=== PATIENT | female | born 1940 | race Caucasian/White ===

== ENCOUNTER → 2016-05-15 | Outpatient (CLI) | payer MEDICARE ==
--- NOTE | 2016-05-16 09:05 | US ---
EXAM DESCRIPTION: US LOWER EXTREMITY VEINS LIMITED/UNILATERAL/FOLLOW UP CLINICAL HISTORY: 75 y/o F, SOFT TISSUE DISORDER COMPARISON: None TECHNIQUE: Grayscale, color Doppler and spectral Doppler imaging of the venous structures within left lower extremity was performed. FINDINGS: Normal compressibility and color Doppler flow of the venous structures within the left lower extremity. IMPRESSION: Negative for left lower extremity DVT. Electronically signed by: Earl Soler MD 05/16/2016 09:04
== END | disposition home or self-care (01) ==
LOC: RAD 14:44
PROVIDERS: ATTEND Nurse Practitioner Family
DX: R60.0 Localized edema (principal); M79.89 Other specified soft tissue disorders

== ENCOUNTER → 2016-05-15 | Outpatient (CLI) | payer MEDICARE | END | disposition home or self-care (01) | LOC: GMA 14:30 | PROVIDERS: ATTEND Nurse Practitioner Family | DX: M79.89 Other specified soft tissue disorders (principal) ==

== ENCOUNTER → 2016-06-20 | Outpatient (CLI) | payer MEDICARE ==
--- NOTE | 2016-06-21 07:42 | MRI ---
Study: MRI of the Left Knee. Indication: Left knee pain and lower leg pain laterally. Technique: Multiplanar, multi sequence MRI of the left knee was obtained without intravenous contrast. Comparison: None. Findings: Mucoid degeneration ACL without tear. PCL, MCL and lateral collateral ligament complex intact. The posterior attachment medial meniscus appears attenuated and a component of radial tearing is suspected as well as questionable 4 mm internal ossification. 3 mm of extrusion of the body with degenerative signal throughout the posterior horn and body. Degenerative signal and attenuation anterior root attachment lateral meniscus. Grade 3 and mild grade 4 chondral loss central weightbearing portions medial compartment with grade 2/3 changes lateral compartment. Patellofemoral extensor mechanism intact. Irregular grade 4 chondral loss and subchondral marrow change of the patellar apex. Moderate sized knee effusion. No acute fracture or osseous contusion. 6 mm cyst at the anterior margin of the anterior root insertion medial meniscus. Impression: Mucoid degeneration ACL without acute tear. Hypoattenuation posterior attachment medial meniscus with high-grade radial tearing and an internal ossicle suspected. Degeneration and attenuation anterior root attachment lateral meniscus. 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 Moderate-sized knee effusion. Electronically signed by: Kirby Morales MD 06/21/2016 7:40 AM CDT
== END | disposition home or self-care (01) ==
LOC: MRI 12:51
PROVIDERS: ATTEND Nurse Practitioner Family
DX: S83.242A Other tear of medial meniscus, current injury, left knee, initial encounter (principal); M25.562 Pain in left knee

== ENCOUNTER 2016-07-18 20:50 | Emergency (ER) | payer MEDICARE ==
[2016-07-18] MEDS ORDERED: NITROGLYCERIN 0.4 MG 25 EA TAB SL ONE ×2 (21:04→21:05)
[2016-07-18] MEDS ORDERED: ASPIRIN TABLET 325 MG TAB ONE (21:05)
[2016-07-18] MEDS ORDERED: ASPIRIN TABLET 325 MG TAB PO ONE (21:05)
--- NOTE | 2016-07-18 22:01 | ED.PDOC ---
History of Present Illness - General Chief Complaint: Cardiovascular Problem Stated Complaint: elevated cardiac enzymes Time Seen by Provider: 07/18/16 21:28 Source: patient, RN notes reviewed, Vital Signs reviewed, RN/MD, old records Exam Limitations: no limitations - History of Present Illness Initial Comments: Patient is a 76 y/o female who has had shortness of breath for 3 weeks. She has had occasional chest tightness. She want to see her PCP today and he performed an EKG which showed t-wave inversion in II, III and aVL. He received her labs this evening and they showed a Troponin I of 0.08 and a BNP of 400. Patient was called and told to come into the ED. Patient now has mild chest pressure but continued shortness of breath. When she does have chest pain, it radiates to her back. She denies any cough. She has a history of high blood pressure. Timing/Duration: getting worse, other - 2-3 weeks Severity: moderate, severe Location: other - left chest Activities at Onset: none Prior Chest Pain/Cardiac Workup: no prior cardiac workup, other - Patient has an appointment to see Dr. Vickers but has not seen him yet. Improving Factors: other - sitting up Worsening Factors: other - laying down, activity Nitro Today/Relief: 0.4 mg x 1, provided by ED, complete relief Aspirin Treatment Today: 325 mg x 1, provided by ED Associated Symptoms: chest pain, malaise, shortness of breath, weakness Allergies/Adverse Reactions: Allergies NO KNOWN ALLERGY Allergy (Verified 07/12/13 13:17) Review of Systems - Review of Systems Constitutional: States: weakness EENTM: States: no symptoms reported Respiratory: States: orthopnea, short of breath Cardiology: States: chest pain Gastrointestinal/Abdominal: States: no symptoms reported Genitourinary: States: no symptoms reported Musculoskeletal: States: joint pain, joint swelling Skin: States: no symptoms reported Neurological: States: no symptoms reported Endocrine: States: no symptoms reported Hematologic/Lymphatic: States: no symptoms reported All other Systems: Reviewed and Negative Physical Exam - Physical Exam General Appearance: Alert, Anxious Eyes, Ears, Nose, Throat Exam: normal ENT inspection Neck: non-tender, full range of motion, supple Progress - Results/Orders Results/Orders: Labs reviewed from clinic: Troponin I 0.08, BNP 400. EKG from clinic reviewed: T wave inversion in II, III and aVF 07/18/16 07/18/16 20:55 21:10 Temperature 98.0 F Pulse Rate [ 78 77 monitor] Respiratory 16 Rate Blood Pressure 183/126 162/72 [Left Arm] O2 Sat by Pulse 95 Oximetry Laboratory Results Creatine Kinase 56 IU/L (26-140) 07/18/16 21:35 CK-MB (CK-2) 2.4 ng/mL (0.0-4.4) 07/18/16 21:35 CK-MB (CK-2) % Not Reportable 07/18/16 21:35 Troponin I 0.09 ng/mL (0.01-0.05) H* 07/18/16 21:35 - EKG/XRAY/CT EKG: Sinus - 77 bpm, nonspecific ST T wave Chg - T-wave inversion in leads III and aVF, Changed from - 07/18/2016 - T wave inversion in lead II as well Comments: NML axis, normal intervals. Sinus rhythm Departure - Departure Clinical Impression: Elevated troponin Congestive heart failure Qualifiers: Congestive heart failure type: unspecified congestive heart failure type Congestive heart failure chronicity: acute Qualifier Code: (I50.9) Heart failure , unspecified Chest pain Qualifiers: Chest pain type: unspecified Qualifier Code: (R07.9) Chest pain, unspecified Time of Disposition: 22:19 Disposition: Transfer to Hospital Transfer to Outside Facility - Transfer Information Accepting Provider:: Dr. Harp Accepting Facility: [facility] Reason for Transfer: required specialist not available - Initial contact at [phone]. Return call at [phone].
[2016-07-18 22:16] VITALS: TEMP 98
[2016-07-18 22:57] VITALS: BP 142/68; O2SAT 94
--- NOTE | 2016-07-18 23:00 | RAD ---
Procedure: XR CHEST 1 VIEW Exam Date: 07/18/2016 Ordering Provider: Caroline Soto Clinical Indication: elevated troponin Comparison: None Findings: Cardiac size is magnified by technique. Pulmonary vasculature is normal. Mediastinal contour is normal. Aortic contour is normal. There is no focal lung consolidation. No pleural effusion. There is no pneumothorax. There is no acute bony or soft tissue abnormality. Postsurgical changes in the right shoulder. Impression: 1. No acute abnormalities in the chest. Electronically signed by: Inocencio Jameson MD 07/18/2016 10:59 PM CDT
== END 2016-07-18 22:57 | disposition short-term general hospital (02) ==
LOC: ER 20:50
DX: I50.9 Heart failure, unspecified (principal); R79.89 Other specified abnormal findings of blood chemistry; R07.9 Chest pain, unspecified

== ENCOUNTER 2017-05-11 09:45 | Observation (INO) | payer MEDICARE ==
[2017-05-11] MEDS ORDERED: ALUM & MAG HYDROX-SIMETHICONE 30 ML, LIDOCAINE VISCOUS 2% 15 ML PO ONE ×2 (10:12)
[2017-05-11] MEDS ORDERED: ONDANSETRON ODT 8 MG TAB SL ONE (10:12)
[2017-05-11] MEDS ORDERED: KETOROLAC TROMETHAMINE INJ 30 MG/ML VIAL IV ONE (10:58)
[2017-05-11] MEDS ORDERED: SODIUM CHLORIDE 0.9% 1000ML 1,000 ML IVS ONE (10:59)
[2017-05-11] MEDS ORDERED: LIDOCAINE HCL 2% (MOUTH-THROAT) 15 ML UD ONE (11:02)
[2017-05-11] MEDS ORDERED: ALUM & MAG HYDROX-SIMETHICONE 30 ML UD ONE (11:02)
--- NOTE | 2017-05-11 11:06 | RAD ---
PROCEDURE: Abdomen Series Clinical History: abd pain, right shoulder pain, n/v Indication: Same as above Comparison: 07/18/2016 Technique: Two views of the abdomen and pelvis and single view of the chest were done. Findings: There is no gross evidence of free air in the abdomen or the pelvis . The small and large bowel gas pattern does not show any evidence of obstruction, ileus or bowel wall thickening. There is no visualization of radiopaque calculi in the outline of the urinary tract. There is no significant constipation. Small amount of retained fecal material is seen in the rectosigmoid colon There are no discrete airspace infiltrates, pneumothoraces or pleural effusions. The cardiac mediastinal silhouette is unremarkable Degenerative changes are seen in the thoracic and the lumbar spine. Prior surgery is seen in the right shoulder joint. Multiple phleboliths are seen in the pelvis. Impression: There are no acute or significant findings in the chest, abdomen and the pelvis Location of Interpretation: [id number] Electronically signed by: Robbie Manrique MD 05/11/2017 11:06 AM [facility] Workstation: [id number]
--- NOTE | 2017-05-11 12:00 | CT ---
EXAM: CT ABDOMEN PELVIS WITHOUT CONTRAST CLINICAL INDICATION: upper abd pain 2 weeks with elev lft, MAIN TECHNIQUE: Multiple axial CT images of the abdomen and pelvis were obtained without IV or oral contrast. Coronal and sagittal reformatted images were included. This exam was performed according to our departmental dose-optimization program which includes use of Automated Exposure Control, adjustment of the mA and/or kV according to patient size and/or use of iterative reconstruction technique. COMPARISON: None. FINDINGS: Evaluation of the soft tissue structures and vasculature is limited given the lack of IV contrast. Chest: The visualized lung bases are clear, without nodule, lung masses or airspace consolidation. There are no pleural or pericardial effusions. Heart size appears within normal limits. Abdomen/Pelvis: The liver has normal size and contours. No focal intrahepatic mass lesion is identified. There is no extrahepatic biliary ductal dilatation. Gallbladder is present. The spleen, pancreas and adrenal glands have a normal noncontrast enhanced CT appearance. The kidneys have a normal noncontrast CT appearance, and there is no obstructive uropathy. There are sub-5 mm bilateral nonobstructing renal calculi. No ureteral or intravesicular calculi appreciated. Loops of bowel are normal in caliber, without signs of obstruction or adjacent inflammatory changes. A normal appendix is not confidently identified, but no inflammatory changes are identified in the right lower quadrant, or elsewhere in the abdomen. Uterus is atrophic or surgically absent. No adnexal masses. Urinary bladder is grossly unremarkable. No free air or free fluid in the abdomen or pelvis. No enlarged lymphadenopathy identified in the abdomen or pelvis. Visualized vascular structures are grossly unremarkable, with normal course and caliber of the aorta and branch vessels. The visualized osseous structures are mildly demineralized. There is mild multilevel degenerative disc disease and hypertrophic degenerative changes visualized spine. There are moderate hypertrophic degenerative changes of joint space narrowing and osteoarthrosis involving both hip joints. No suspicious osseous lesions identified. IMPRESSION: 1. No CT evidence for acute intra-abdominal process. Specifically, no findings to suggest etiology for patient's upper abdominal pain. 2. Bilateral nonobstructing renal calculi. Electronically signed by: Eduar Stout MD 05/11/2017 11:59 AM [employer] Workstation: [id number]
--- NOTE | 2017-05-11 13:13 | ED.PDOC ---
History of Present Illness - General Chief Complaint: General Time Seen by Provider: 05/11/17 10:10 Source: patient Exam Limitations: no limitations - History of Present Illness Initial Comments: The patient is a 76-year-old female presenting to the emergency room secondary to the acute onset of nausea and vomiting and epigastric discomfort around 5 AM this morning followed very quickly by mid right upper back pain. The patient has had a cardiac history and was concerned that this may be recurrent heart attack. She has had stents placed in the past and does take a significant blood thinner without any GI prophylaxis. No history of any liver disease. No history of any gallbladder problems. Of note she has had some intermittent nausea and vomiting over the last 2-3 weeks. She is a patient of Dr. Horvath. I do not have any previous lab work to compare to on this patient. She denies fevers. No syncope or near syncope. She was asleep when this all started. Timing/Duration: 4-6 hours Severity: moderate Improving Factors: nothing Worsening Factors: nothing Associated Symptoms: chest pain, diaphoresis, loss of appetite, nausea/vomiting Allergies/Adverse Reactions: Allergies Codeine Allergy (Verified 07/18/16 22:58) Morphine Allergy (Verified 07/18/16 22:58) Home Medications: Ambulatory Orders Amlodipine Besylate 5 mg PO DAILY 07/18/16 Ascorbic Acid [Vitamin C] 500 mg PO DAILY 07/18/16 Aspirin [Aspirin Childrens] 81 mg PO DAILY 07/18/16 Cholecalciferol [Vitamin D3] 1,000 unit PO DAILY 07/18/16 Cyanocobalamin [Vitamin B12] 1,000 mcg PO DAILY 07/18/16 Metoprolol Succinate [Metoprolol Succinate ER] 100 mg PO DAILY 07/18/16 Multiple Vitamins W/ Minerals [Multivitamin Adult] 1 chw PO DAILY 07/18/16 Bristow-3 Fatty Acids [Bristow 3] 1 cap PO DAILY 07/18/16 Valsartan 320 mg PO DAILY 07/18/16 Review of Systems - Review of Systems Constitutional: States: malaise EENTM: States: no symptoms reported Respiratory: States: no symptoms reported Cardiology: States: no symptoms reported Gastrointestinal/Abdominal: States: abdominal pain, nausea, vomiting Genitourinary: States: no symptoms reported Musculoskeletal: States: back pain Skin: States: no symptoms reported Neurological: States: anxiety Endocrine: States: no symptoms reported All other Systems: No Change from Baseline Past Medical History (General) - Patient Medical History Hx Seizures: No Hx Stroke: No Hx Dementia: No Hx Asthma: No Hx of COPD: No Hx Cardiac Disorders: No Hx Congestive Heart Failure: No Hx Pacemaker: No Hx Hypertension: Yes Hx Thyroid Disease: No Hx Diabetes: No Hx Gastroesophageal Reflux: No Hx Renal Disease: No Hx Cancer: No Hx of HIV: No Hx Hepatitis C: No Hx MRSA: No - Vaccination History Hx Tetanus, Diphtheria Vaccination: No Hx Influenza Vaccination: Yes Hx Pneumococcal Vaccination: Yes - Social History Hx Tobacco Use: No Hx Chewing Tobacco Use: No Hx Alcohol Use: No Hx Substance Use: No Hx Substance Use Treatment: No Hx Depression: No Hx Physical Abuse: No Hx Emotional Abuse: No Hx Suspected Abuse: No Family Medical History - Family History Mother Family History: Unknown Living Status: Unknown Physical Exam - Physical Exam General Appearance: Alert, Anxious, No apparent distress Eye Exam: bilateral normal Ears, Nose, Throat: hearing grossly normal, normal ENT inspection, normal pharynx Neck: full range of motion, supple, normal inspection Respiratory: lungs clear, normal breath sounds, no respiratory distress, no accessory muscle use Cardiovascular/Chest: normal peripheral pulses, regular rate, rhythm, no edema Peripheral Pulses: radial,right: 2+, radial,left: 2+, dorsalis pedis,right: 2+, dorsalis pedis,left: 2+ Gastrointestinal/Abdominal: soft, other - diffuse epigastric discomfort to palpation. No definite rebound or peritoneal signs. 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 The patient does at least appear to have a mild hepatitis based on the lab work. CT scan shows no obvious acute changes in the right upper quadrant. Source of the hepatitis is uncertain. This may be viral or due to medications. The patient has responded well to medications here. Nausea has been controlled. The patient does also likely have significant gastritis possibly related to medications as well. The plan will be to admit the patient and repeat lab work both as far as liver function test and heart enzymes to make sure there is no progression of disease from either source. Symptoms can be controlled as well with medications. If indicated a right upper quadrant ultrasound can be obtained at a later date when one is available. Additional blood work for workup of hepatitis may be warranted if she is not improving in the near future. - Results/Orders Results/Orders: Laboratory Tests 05/11/17 05/11/17 05/11/17 10:10 10:11 10:11 WBC 11.5 H RBC 4.63 Hgb 12.9 Hct 39.4 MCV 85.0 MCH 27.9 MCHC 32.9 L RDW 14.5 Plt Count 319 MPV 8.6 Absolute Neuts (auto) 9.80 H Absolute Lymphs (auto) 1.10 Absolute Monos (auto) 0.40 Absolute Eos (auto) 0.00 Absolute Basos (auto) 0.10 Neutrophils % 85.5 H Lymphocytes % 10.0 L Monocytes % 3.6 Eosinophils % 0.3 L Basophils % 0.6 PT 10.2 INR 0.900 PTT (SP) 23.8 L D-Dimer, Quantitative < 230 Sodium Potassium Chloride Carbon Dioxide Anion Gap BUN Creatinine BUN/Creatinine Ratio Random Glucose Serum Osmolality Calcium Magnesium Total Bilirubin AST ALT Alkaline Phosphatase Creatine Kinase 58 CK-MB (CK-2) 1.5 CK-MB (CK-2) % Not Reportable Troponin I < 0.02 B-Natriuretic Peptide 80.6 Serum Total Protein Albumin Globulin Albumin/Globulin Ratio Amylase 58 Lipase Urine Color Urine Appearance Urine pH Ur Specific Orient Urine Protein Urine Glucose (UA) Urine Ketones Urine Blood Urine Nitrite Urine Bilirubin Urine Urobilinogen Ur Leukocyte Esterase Urine RBC Urine WBC Ur Epithelial Cells Urine Bacteria 05/11/17 05/11/17 10:11 12:38 WBC RBC Hgb Hct MCV MCH MCHC RDW Plt Count MPV Absolute Neuts (auto) Absolute Lymphs (auto) Absolute Monos (auto) Absolute Eos (auto) Absolute Basos (auto) Neutrophils % Lymphocytes % Monocytes % Eosinophils % Basophils % PT INR PTT (SP) D-Dimer, Quantitative Sodium 139 Potassium 4.4 Chloride 104 Carbon Dioxide 22 Anion Gap 17.4 BUN 19 H Creatinine 0.75 BUN/Creatinine Ratio 25.3 H Random Glucose 140 H Serum Osmolality 282.1 Calcium 9.4 Magnesium 2.0 Total Bilirubin 1.5 H AST 285 H ALT 143 H Alkaline Phosphatase 132 H Creatine Kinase CK-MB (CK-2) CK-MB (CK-2) % Troponin I B-Natriuretic Peptide Serum Total Protein 7.3 Albumin 4.3 Globulin 3.0 Albumin/Globulin Ratio 1.4 Amylase Lipase 33 Urine Color Yellow Urine Appearance Clear Urine pH 7.5 Ur Specific Orient 1.020 Urine Protein Negative Urine Glucose (UA) Negative Urine Ketones Negative Urine Blood Negative Urine Nitrite Negative Urine Bilirubin Negative Urine Urobilinogen 0.2 Ur Leukocyte Esterase Negative Urine RBC 0 Urine WBC 0 Ur Epithelial Cells 0 Urine Bacteria 0 acute abdominal series and CT scan of the abdomen and pelvis show no evidence of any acute pathology. No pneumonia. No obvious vascular pathology. Noobvious gallbladder disease or liver changes. No evidence of diverticulitis. No evidence of perforation. No obstruction. \ EKG shows normal sinus rhythm at rate of 61 bpm. Normal axis. Normal QT interval. No acute ST segment changes concerning for ischemia. Borderline LVH. Departure - Departure Clinical Impression: Hepatitis Nausea and vomiting Qualifiers: Vomiting type: unspecified Vomiting Intractability: non-intractable Qualified Code(s): R11.2 - Nausea with vomiting, unspecified Disposition: Admit Patient Home Medications: Ambulatory Orders Amlodipine Besylate 5 mg PO DAILY 07/18/16 Ascorbic Acid [Vitamin C] 500 mg PO DAILY 07/18/16 Aspirin [Aspirin Childrens] 81 mg PO DAILY 07/18/16 Cholecalciferol [Vitamin D3] 1,000 unit PO DAILY 07/18/16 Cyanocobalamin [Vitamin B12] 1,000 mcg PO DAILY 07/18/16 Metoprolol Succinate [Metoprolol Succinate ER] 100 mg PO DAILY 07/18/16 Multiple Vitamins W/ Minerals [Multivitamin Adult] 1 chw PO DAILY 07/18/16 Bristow-3 Fatty Acids [Bristow 3] 1 cap PO DAILY 07/18/16 Valsartan 320 mg PO DAILY 07/18/16 Decision To Admit - Decistion To Admit Decision to Admit Reason: Medical Nature Decision to Admit Date: 05/11/17 Decision to Admit Time: 13:19
[2017-05-11] MEDS ORDERED: PANTOPRAZOLE SODIUM IV 40 MG VIAL IV ONE (13:19)
[2017-05-11] MEDS ORDERED: SUCRALFATE 1 GM/10 ML 1 GM UD PO ONE (13:19)
[2017-05-11] MEDS ORDERED: SODIUM CHLORIDE 0.9% 10 ML VIAL ONE (13:36)
--- NOTE | 2017-05-11 13:43 | HP ---
SUPERVISING PHYSICIAN: Tashi Horvtah MD CHIEF COMPLAINT: General malaise, nausea and vomiting. HISTORY OF PRESENT ILLNESS: Ms. Doty is a 76 year-old female patient who presented to the Emergency Department today due to an acute onset of nausea and vomiting with some epigastric discomfort that began around 5 o' clock this morning that was followed by mid right upper back pain. The patient has a significant history of cardiovascular disease with a previous myocardial infarction in July of 2016 with two stents placed. She noted that previously she had some symptoms similar to this and was afraid she was having another heart attack so she came to the Emergency Room. She notes that she has actually been having some nausea and vomiting with some ongoing diarrhea for over three weeks. She was seen by Dr. Horvath on May 07 and given a flu shot. At that time, she was complaining of just generalized weakness and fatigue. Laboratory studies today showed she had a mild leukocytosis of 11,500 with a left shift. Coagulation studies were within normal limits. Significant on her chemistries was that she had elevated liver functions including T bilirubin of 1.5, AST 285, alkaline phosphatase of 132, ALT 143. Cardiac enzymes initially showed troponin less than 0.02 with a BNP of 80.6. Pancreatic enzymes were all within normal limits. Vital signs initially on presentation to the Emergency Department showed she was afebrile with a temperature of 96.8. Initial radiographic studies included abdominal x-ray and per radiology interpretation showed there was no acute significant findings in the chest, abdomen and pelvis. The patient was complaining of diffuse abdominal pain but more so on palpation of the right upper quadrant. At that point, CT of the abdomen and pelvis was completed without contrast and per radiology interpretation there was no CT evidence for acute intraabdominal process, specifically no findings to suggest etiology of the upper abdominal pain. There was also note of bilateral nonobstructing renal calculi. The patient has an allergy listed as morphine which she describes as itching, however, in the Emergency Department she was given a dose of Toradol and a GI cocktail which did show significant improvement in her symptoms, decrease in pain level. She was given a bolus of saline as well as some [place]. Dr. Tyler Cordova, Emergency Room physician, requested the patient be placed in at least observation for further monitoring of her liver enzymes to ensure that they were not elevating and further observation of the abdominal pain. The patient is now going to be placed in observation for ongoing further treatment and evaluation. She was stable at time of admission. PAST MEDICAL HISTORY: 1. Myocardial infarction with two stents placed in July of 2016. 2. Hypertension. PAST SURGICAL HISTORY: 1. Total hysterectomy. CURRENT MEDICATIONS: 1. Lorazepam 0.5 mg at bedtime. 2. Brilinta 90 mg b.i.d. 3. Multivitamin adult one chewable daily. 4. Flanagan 3, one daily. 5. Vitamin B12, 2000 mcg daily. 6. Vitamin D3, 1000 units daily. 7. Vitamin C, 500 mg daily. 8. Valsartan 320 mg daily. 9. Aspirin 81 mg daily. 10. Amlodipine 5 mg daily. 11. Metoprolol succinate ER 100 mg at bedtime. ALLERGIES: CODEINE AND MORPHINE. FAMILY HISTORY: Significant for cardiovascular disease and hypertension. SOCIAL HISTORY: The patient works for the [employer]. She is . She has never drank alcohol and never smoked. REVIEW OF SYSTEMS: CONSTITUTIONAL: General malaise for well over three weeks. HEENT: No nasal congestion, sore throat, vision changes, earaches, reported. RESPIRATORY: No shortness of breath, cough, congestion. CARDIOVASCULAR: Denies chest pain, palpitations or syncopal episodes. GASTROINTESTINAL: As noted in history of present illness with abdominal pain, more in the right upper quadrant with some nausea and vomiting and some diarrhea previously. GENITOURINARY: Denies any dysuria, hematuria or urinary symptoms. MUSCULOSKELETAL: Notes generalized back pain. NEUROLOGICAL: Notes that she has some anxiety but denies any neurological deficits, headaches, vision changes, syncopal episodes. PHYSICAL EXAMINATION: VITAL SIGNS: Temperature on admission to medical/surgical floor 98.2, pulse 75 , blood pressure 143/70, respirations 16, saturation 98% on room air. Admission weight 66.9 kg. GENERAL: The patient does appear tired and frail and ill-appearing but she is alert and appears to be in no acute distress. HEENT: Tympanic membranes are clear. Bilateral oropharynx showed pink but dry mucous membranes. No lesions. NECK: Supple, full range of motion, non-tender with no jugular venous distention. CHEST: Lungs clear to auscultation without rhonchi, wheezing or rales. CARDIOVASCULAR: Regular rate and rhythm with appreciable murmurs, rubs, or gallops. ABDOMEN: Diffuse epigastric pain on palpation, no rebound, peritoneal signs or guarding. She does have some right upper quadrant on deep palpation. Bowel sounds are heard. Abdomen is soft and nondistended. BACK: There is no notable CVA tenderness. EXTREMITIES: No cyanosis, clubbing, or edema. NEUROLOGIC: She is alert and oriented x 3. Cranial nerves II through XII are grossly intact. Facial features were symmetrical. Extraocular movement within normal limits. No known nystagmus. LABORATORY: Studies showed a mild leukocytosis of 11,500 with hemoglobin 12.9, hematocrit 39.4, platelet count 319,000. Differential did show a left shift. Coagulation showed a normal PT at 10.2, INR 0.9, PTT within normal limits at 23.8 with a D dimer less then 230. Chemistries showed normal electrolytes, potassium 4.0, BUN slightly at 19, creatinine 0.75, glucose 140. Liver function did show elevation of total bilirubin of 1.5, AST 285, ALT 143, alkaline phosphatase 132. Initial cardiac enzymes showed a normal CPK at 58 with a troponin less than 0.02. BNP was normal at 80.6. Calcium normal at 9.4, magnesium 2.0, amylase and lipase were both within normal limits. Urinalysis showed to be within normal limits. She also had a mono screen that was negative with group A strep screen that was negative. MICROBIOLOGY: Blood cultures are pending. Flu swabs for both A and B by PCR were both negative. Cultures pending. RADIOLOGY: Initially she had an abdominal x-ray in the Emergency Department and per radiology interpretation showed there were no significant findings in the chest, abdomen or pelvis. This was followed with an abdominal pelvic CT without contrast and per radiology interpretation there was no CT evidence of acute intraabdominal processes, specifically no findings to suggest the etiology for patient's upper abdominal pain. There was also note on the CT of bilateral nonobstructing renal calculi. EKG showed a normal sinus rhythm with no ST or T-wave changes. ASSESSMENT: 1. Chest pain, required rule out for acute ischemic with initial cardiac enzymes showing to be negative and EKG showing a normal sinus rhythm with the patient having a history of recent myocardial infarction within the last 8 months. 2. Acute abdominal pain with 3-week history of nausea and vomiting with elevated enzymes concerning for hepatis versus viral gastroenteritis. 3. Elevated liver enzymes, uncertain etiology, with hepatitis panel pending, possibly related to ongoing viral illness with a CT showing no acute intraabdominal processes. 4. Moderate dehydration secondary to #1. 5. Leukocytosis with a left shift, uncertain etiology, felt to be possibly related to some demargination and stress response with concern for a viral enteritis versus gastritis. 6. Hypertension. 7. Persistent nausea and vomiting, uncertain etiology but possibly secondary to ongoing hepatitis as demonstrated by her elevated levels of liver enzymes requiring close monitoring. PLAN: The patient is placed in observation tonight for fluid management. She was given a liter of saline in the Emergency Room and follow up with a liter of LR and then continue with maintenance with D5 half normal saline and 20 of potassium at 125 an hour. She will be n.p.o. except for ice chips and p.o. medications for bowel rest. She is allergic to morphine which she describes as more of a pruritus type reaction rather than an allergic reaction. Given that she is on Brilinta and unknown certain etiology of the abdominal pain, I hesitate to give her any Toradol other than what she was given in the Emergency Room as well as Tylenol given the liver function. Therefore, we discussed possibly utilizing Benadryl along with morphine should she require anymore pain management. Again, we will adjust pain regimen medications according to pain response. Will give her some Zofran for nausea. She will be on DVT prophylaxis as per protocol. We will resume her home medications once they have been updated and verified in the medical records. I have ordered a hepatitis panel which is pending and we will plan to reevaluate with laboratory studies in the morning to further evaluate the liver enzymes along with repeat cardiac enzymes every 6 hours x3. We will anticipate her length of stay to be one or two days with close monitoring of her liver function with consideration of consultation with Dr. John should she continue to show any significant changes in her labs along with continued right upper quadrant pain with need for either inpatient ultrasound or followup seeing how clinically she is on discharge in regards to consultation with Dr. John. We will readdress in the morning and again, should she show continued right upper quadrant pain, I will discuss the case with Dr. John. Until the, we will continue to treat conservatively and reevaluate. Until discharge, we will continue monitor and treat appropriately. #[id number] [facility]
[2017-05-11] MEDS ORDERED: HYDROcodone 5MG/APAP 325MG 1 EA TAB ONE (14:22)
[2017-05-11] MEDS ORDERED: HYDROcodone 5MG/APAP 325MG 1 EA TAB PO PRN (14:23)
[2017-05-11] MEDS ORDERED: HYDROcodone 5MG/APAP 325MG 1 EA TAB PO ONE (14:26)
[2017-05-11] MEDS ORDERED: SODIUM CHLORIDE 0.9% (FLUSH) 10 ML SYG IV PRN (14:57)
[2017-05-11] MEDS ORDERED: IV SET AND CAP CHANGE INJ INJ SCH (15:00)
[2017-05-11] MEDS ORDERED: ONDANSETRON INJ 4 MG/2 ML VIAL IV PRN (15:06)
--- NOTE | 2017-05-11 16:01 | PCM.CORE ---
Physician DVT/VTE - Nurse DVT Assessment & Total Each Risk Factor Represents 2 Points: Age 60-74 Each Risk Factor is 1 Point: Obesity (BMI >25) DVT Assessment Score: 3 - 3-4 High Risk Treatments: Early Ambulation *, Sequential Compression Device Pharmacological: Enoxaparin 40 mg SQ Daily
[2017-05-11] MEDS: KCL 20MEQ/D5 1/2NS 1,000 ML IVS PRN (16:22)
[2017-05-11] MEDS: ENOXAPARIN SODIUM 40 MG/0.4 ML SYG SUBCU SCH (17:38)
[2017-05-11] MEDS ORDERED: LACTATED RINGERS 1,000 ML IVS ONE (18:15)
[2017-05-11] MEDS: LORazepam 0.5 MG TAB PO SCH (20:22)
[2017-05-11] MEDS: METOPROLOL SUCCINATE XL 100 MG TAB PO SCH (20:25)
[2017-05-11] MEDS: NON-FORMULARY MEDICATION 1 EA MIS (Ticagrelor [Brilinta] 90 MG) PO SCH (23:02)
[2017-05-12] MEDS: KCL 20MEQ/D5 1/2NS 1,000 ML IVS PRN ×3 (02:52→19:52)
[2017-05-12] MEDS: PANTOPRAZOLE SODIUM IV 40 MG VIAL IV SCH (06:16)
[2017-05-12] MEDS: CYANOCOBALAMIN 1,000 MCG TAB PO SCH (09:26)
[2017-05-12] MEDS: ASCORBIC ACID 500 MG TAB PO SCH (09:27)
[2017-05-12] MEDS: amLODIPine BESYLATE 5 MG TAB PO SCH (09:27)
[2017-05-12] MEDS: NON-FORMULARY MEDICATION 1 EA MIS (Ticagrelor [Brilinta] 90 MG) PO SCH ×2 (09:27→20:29)
[2017-05-12] MEDS: ASPIRIN (CHEWABLE) 81 MG TAB PO SCH (09:27)
[2017-05-12] MEDS: ENOXAPARIN SODIUM 40 MG/0.4 ML SYG SUBCU SCH (09:27)
[2017-05-12] MEDS: VALSARTAN 80 MG TAB PO SCH (09:27)
[2017-05-12] MEDS: MULTIPLE VITAMINS W/ MINERALS 1 EA TAB PO SCH (09:27)
--- NOTE | 2017-05-12 13:13 | RAD ---
PROCEDURE: Abdomen Flat Upright Clinical History: RUQ pain Indication: Same as above Comparison: CT of the abdomen and pelvis done on 05/11/2017 Technique: Two views of the abdomen and pelvis were done. Findings: There is no gross evidence of free air in the abdomen or the pelvis . The small and large bowel gas pattern does not show any evidence of obstruction, ileus or bowel wall thickening. There is no visualization of radiopaque calculi in the outline of the urinary tract. The visualized lung bases are unremarkable . Multiple phleboliths are seen in the pelvis. Impression: Unremarkable two views of the abdomen and the pelvis Location of Interpretation: [id number] Electronically signed by: Robbie Manrique MD 05/12/2017 1:12 PM TECHNICAL INTERN Workstation: [employer]
--- NOTE | 2017-05-12 16:42 | CONS ---
DATE OF CONSULTATION: 05/12/17 PRIMARY CARE PHYSICIAN: Tashi Horvath M.D., hospitalist sewing room supervisor HISTORY OF PRESENT ILLNESS: The patient is a 76 year-old female who was admitted yesterday with nausea and vomiting which was bilious yesterday, abdominal pain which was also associated with pain in her back. The patient states that she has been sick with diarrhea, nausea and vomiting for approximately 3 weeks. She is status post myocardial infarction with stent placement in July of last year. She denies hematemesis, hematochezia, melena or acholic stools. She denies fever or chills. The patient denies significant problem with any specific foods. PAST MEDICAL HISTORY: 1. Myocardial infarction. 2. Hypertension. PAST SURGICAL HISTORY: 1. Hysterectomy. 2. Child times 4. CURRENT MEDICATIONS: 1. Lorazepam. 2. Brilinta. 3. Valsartan. 4. Baby aspirin. 5. Amlodipine. 6. Metoprolol. ALLERGIES: CODEINE AND MORPHINE. SHE IS ALSO ALLERGIC TO IV CONTRAST, THIS WAS PROBABLY MORE THAN 20 YEARS AGO. FAMILY HISTORY: Positive for heart disease and hypertension. SOCIAL HISTORY: The patient worked for the [employer]. She is . No history of alcohol or tobacco use or abuse. REVIEW OF SYSTEMS: Unremarkable except as in the History of Present Illness. No urinary tract symptoms. No cough or chest pain. PHYSICAL EXAMINATION: VITAL SIGNS: She is afebrile and normotensive. GENERAL: The patient is awake, alert and cooperative. HEENT: Head and neck examination reveals the sclera to be nonicteric. Mucous membranes are moist. NECK: Without adenopathy. BACK: Without CVA tenderness. CHEST: She has equal breath sounds bilaterally. HEART: Regular rhythm. ABDOMEN: Soft. There is right upper quadrant and epigastric tenderness to palpation without guarding, rebound or mass. Bowel sounds are positive. PELVIC AND RECTAL: Examinations are deferred. EXTREMITIES: Without clubbing, cyanosis or edema. LABORATORY: White blood cell count 11,000 on admission and 7.2 this morning. Hemoglobin has dropped from 12.9 to 11.1, platelets have dropped from 317 to 239 , 85% neutrophils on admission and they are 46% today. Chemistries revealed creatinine 0.72 which is essentially stable. Bilirubin is up from 2 to 1.5 AST is down. ALT is slightly up as is the alkaline phosphatase. Amylase and lipase were within normal limits on admission. RADIOLOGY: CT scan of the abdomen without contrast essentially was nondiagnostic, specifically the liver was said to look normal with gallbladder normal and the extrahepatic biliary tree being normal. IMPRESSION: 1. Abdominal pain, nausea and vomiting with elevation of liver function testing and a normal CT scan. The patient is feeling better. This is unlikely hepatitis, although this is still possible. It is also possible that she has passed a gallstone at least into the common bile duct that is nonobstructing. PLAN: To obtain the ultrasound tomorrow. Repeat lab work and make decisions based on the findings of the ultrasound and tomorrow's lab. #[id number] [facility]
[2017-05-12] MEDS: METOPROLOL SUCCINATE XL 100 MG TAB PO SCH (20:29)
[2017-05-12] MEDS: LORazepam 0.5 MG TAB PO SCH (20:29)
[2017-05-13] MEDS: KCL 20MEQ/D5 1/2NS 1,000 ML IVS PRN ×3 (03:47→19:20)
[2017-05-13] MEDS: PANTOPRAZOLE SODIUM IV 40 MG VIAL IV SCH (06:01)
--- NOTE | 2017-05-13 08:14 | PN ---
SUPERVISING PHYSICIAN: Tashi Horvath MD DATE: 05/12/17 SUBJECTIVE: The patient notes she is feeling a little bit better. She denies any nausea and has not had anymore loose stools. She still has some abdominal pain on palpation and if she lays on the right side. She remains afebrile. OBJECTIVE: VITAL SIGNS: Temperature 97.5. Pulse 66. Blood pressure 125/72. Respirations 16. Oxygen saturation 98% on room air. I&Os show negative balance of 457 with 1043 in, 1500 out. Weight 66.6 kg. CHEST: Lungs clear to auscultation bilaterally. HEART: Regular rate and rhythm. ABDOMEN: Soft with some right upper quadrant epigastric tenderness continued with palpation, but no guarding or rebound. Bowel sounds are present. EXTREMITIES: No cyanosis, clubbing or edema. NEUROLOGIC: Alert and oriented times three. LABORATORY: White count normalized to 7,200, hemoglobin 11.1, hematocrit 32.6, platelet count 239,000, differential with a slight left shift with some bands of 2%. Chemistries show normal electrolytes. Potassium 4.2, BUN 11, creatinine 0.72, bilirubin slightly more elevated than on admission at 2.0, AST down to 195, ALT up to 224, alkaline phosphatase is up slightly to 138. Troponins have all been less than 0.02. MICROBIOLOGY: Blood cultures remain negative at 24 hours. Stool leukocyte was negative for fecal lactoferrin with no evidence of fecal WBCs. Stool cultures pending. RADIOLOGY: Repeat abdominal x-ray this morning per radiologic interpretation, 2 view series, showed unremarkable two views of the abdomen and pelvis. ASSESSMENT: 1. Chest pain with no evidence of cardiac involvement with EKGs showing normal saline solution with no ST changes with troponins all being within normal limits with etiology felt to be secondary to right upper quadrant pain and possible biliary colic. 2. Acute abdominal pain with three week history of nausea, vomiting and some diarrhea with elevated liver enzymes on admission with question of hepatitis versus viral hepatitis versus biliary colic with possible passage of a stone into the common bile duct. 3. Elevated liver enzymes, again, uncertain etiology with hepatitis panel pending, questionable ongoing viral illness with CT showing no acute intraabdominal process with ultrasound of the liver/gallbladder pending to further rule out common bile duct stone. 4. Moderate dehydration secondary to #1, improved with fluids. 5. Leukocytosis with a left shift secondary to demargination and stress response with no evidence of ongoing infectious process with possible remote viral gastroenteritis versus gastritis, showing some improvement with IV fluids , not currently on any antibiotic therapy. 6. Hypertension. 7. Persistent nausea and vomiting prior to admission secondary to questionable viral hepatitis with demonstrated elevated enzymes on admission requiring further workup with ultrasound pending. PLAN: The patient has been seen in consultation by Dr. John. We will get an ultrasound of the gallbladder and liver in the morning. The patient will be NPO tonight. We will continue with current plan with IV fluids, bowel rest, pain management and await further assessment of laboratory studies and ultrasound findings in the morning. Until then, we will continue to monitor the patient closely and treat appropriately. #[id number] [facility]
[2017-05-13] MEDS: ASPIRIN (CHEWABLE) 81 MG TAB PO SCH (10:47)
--- NOTE | 2017-05-13 10:47 | US ---
EXAM DESCRIPTION: Abdomen,Limited CLINICAL HISTORY: Right upper quadrant abdominal pain; elevated LFTs COMPARISON: CT abdomen pelvis dated May 11, 2017 TECHNIQUE: Real-time sonographic images of the right upper quadrant of the abdomen are obtained. FINDINGS: Visualized portion of the pancreas appears unremarkable. The liver is normal in size measuring 14.5 cm at the midclavicular line. Parenchymal echogenicity is within normal limits. No focal hepatic mass is seen. Layering sludge demonstrated within the lumen of the gallbladder. Likely a 6 mm calcified stone within the gallbladder lumen. Gallbladder wall is not thickened. No pericholecystic fluid. The common bile duct is at the upper limits of normal in caliber measuring 6.5 mm in diameter. The right kidney measures 10.7 x 5.3 x 4.2 cm. There is an echogenic focus measuring 1.3 x 0.8 cm in the midpole of the right kidney which may represent an extension of the medullary component versus a fat-containing lesion such as AML. Otherwise, cortical echogenicity is within normal limits. No hydronephrosis. Visualized IVC and abdominal aorta are within normal limits. IMPRESSION: 1. Cholelithiasis and layering sludge in the gallbladder lumen. Gallbladder otherwise show no evidence of wall thickening or pericholecystic fluid. Common bile duct is at the upper limits of normal in caliber measuring 6.5 mm in diameter. If there is clinical concern for gallbladder dysfunction or cholecystitis, nuclear medicine hepatobiliary scan with ejection fraction is recommended for further evaluation. 2. A focus of increased echogenicity in the midpole of the right kidney. This may be an extension from the medullary component versus a fat-containing lesion such as angiomyolipoma (AML), incompletely evaluated. Electronically signed by: Natanael Alba MD 05/13/2017 10:46 AM [facility]
[2017-05-13] MEDS: NON-FORMULARY MEDICATION 1 EA MIS (Ticagrelor [Brilinta] 90 MG) PO SCH (10:48)
[2017-05-13] MEDS: ENOXAPARIN SODIUM 40 MG/0.4 ML SYG SUBCU SCH (10:53)
[2017-05-13] MEDS: amLODIPine BESYLATE 5 MG TAB PO SCH (10:54)
[2017-05-13] MEDS: MULTIPLE VITAMINS W/ MINERALS 1 EA TAB PO SCH (10:54)
[2017-05-13] MEDS: ASCORBIC ACID 500 MG TAB PO SCH (10:54)
[2017-05-13] MEDS: CYANOCOBALAMIN 1,000 MCG TAB PO SCH (10:58)
[2017-05-13] MEDS: VALSARTAN 80 MG TAB PO SCH (11:00)
[2017-05-13] MEDS ORDERED: ACETAMINOPHEN 325 MG TAB PO PRN (15:19)
--- NOTE | 2017-05-13 16:14 | PN ---
DATE: 05/13/17 SUPERVISING PHYSICIAN: Rivera Cordova M.D. SUBJECTIVE: The patient is not complaining of any right upper quadrant pain at this time. She has no nausea or vomiting. She has progressed fairly well. Dr. John has visited the patient and discussed potential for cholecystectomy. She did have an ultrasound this morning which showed some stones and sludge in the gallbladder. OBJECTIVE: Blood pressure 134/77, heart rate 65, respiratory rate 16, temperature 98.9, oxygen saturation is 98%. GENERAL: Ms. Doty is a 76 year- old female who is in no active distress at this time. HEENT: Head is normocephalic and atraumatic. EYES: Pupils are equal and reactive. NOSE: No drainage. THROAT: Moist buccal mucosa. NECK: Supple, midline trachea. No jugular venous distention. CHEST: Symmetrical with equal rise and fall of the chest with inspiration and expiration. Lung sounds are clear to auscultation bilaterally. CARDIOVASCULAR: Regular rate and rhythm. Normal S1 and S2. ABDOMEN: Soft. Positive bowel sounds. Some minimal right upper quadrant tenderness to palpation. GENITOURINARY: Exam is deferred. EXTREMITIES: Lower extremities have no edema. NEUROLOGIC: The patient is alert. LABORATORY: Labs have been reviewed as well as the ultrasound as discussed in the subjective. White blood cell count is normal. Mild anemia with hemoglobin 11.5. Chemistry shows improvement in bilirubin to 1.2 from 2.0. Transaminases are improved as well. Hepatitis panel is still pending. ASSESSMENT: 1. Chest pain with a ruled out cardiac event. 2. Abdominal pain which appears to be secondary to gallbladder disease. 3. Transaminitis with elevated bilirubin secondary to #2. 4. Dehydration which has improved. 5. Leukocytosis which has resolved. 6. Hypertension which is stable. PLAN: 1. Given the fact that she is showing signs of a poorly functioning gallbladder, Dr. John is going to take the patient to surgery for cholecystectomy. She has the history of cardiac stents from last July, and has been on Brilinta since that time. I discussed this with Dr. Barajas, and he stated it was okay to take her off of this, and to leave her on ASA 81mg, and to not stop that under any circumstances. The Brilinta will need to be stopped for 5 days, so today she will trial on clear liquids, and if she tolerates this , she will go home tomorrow and come back for surgery on the scheduled date. Will recheck chemistry in the morning. #[id number] [facility]
[2017-05-13] MEDS: METOPROLOL SUCCINATE XL 100 MG TAB PO SCH (20:37)
[2017-05-13] MEDS: LORazepam 0.5 MG TAB PO SCH (20:37)
[2017-05-14] MEDS: KCL 20MEQ/D5 1/2NS 1,000 ML IVS PRN (04:02)
[2017-05-14] MEDS: PANTOPRAZOLE SODIUM IV 40 MG VIAL IV SCH (06:01)
[2017-05-14] MEDS: amLODIPine BESYLATE 5 MG TAB PO SCH (08:30)
[2017-05-14] MEDS: CYANOCOBALAMIN 1,000 MCG TAB PO SCH (08:30)
[2017-05-14] MEDS: VALSARTAN 80 MG TAB PO SCH (08:30)
[2017-05-14] MEDS: MULTIPLE VITAMINS W/ MINERALS 1 EA TAB PO SCH (08:30)
[2017-05-14] MEDS: ASPIRIN (CHEWABLE) 81 MG TAB PO SCH ×2 (08:31→10:49)
[2017-05-14] MEDS: ASCORBIC ACID 500 MG TAB PO SCH (08:42)
[2017-05-14] MEDS ORDERED: SODIUM CHLORIDE 0.9% (FLUSH) 10 ML SYG IV SCH (09:45)
[2017-05-14 10:31] VITALS: BP 133/70; TEMP 97.3; O2SAT 98
[2017-05-15] MEDS ORDERED: PANTOPRAZOLE SODIUM TAB 40 MG PO SCH (06:30)
== END 2017-05-14 11:30 | disposition home or self-care (01) ==
LOC: ER 09:45 → MS 13:42
PROVIDERS: ADMIT Family Medicine; ATTEND Nurse Practitioner Family
DX: K80.20 Calculus of gallbladder without cholecystitis without obstruction (principal); R07.89 Other chest pain; R10.13 Epigastric pain; E86.0 Dehydration; D72.829 Elevated white blood cell count, unspecified; R74.8 Abnormal levels of other serum enzymes; R74.0 Nonspecific elevation of levels of transaminase and lactic acid dehydrogenase [LDH]; I10 Essential (primary) hypertension; I25.2 Old myocardial infarction; D64.9 Anemia, unspecified; N20.0 Calculus of kidney; Z95.5 Presence of coronary angioplasty implant and graft; Z79.82 Long term (current) use of aspirin; Z79.899 Other long term (current) drug therapy; Z88.6 Allergy status to analgesic agent; Z91.041 Radiographic dye allergy status; Z82.49 Family history of ischemic heart disease and other diseases of the circulatory system
CPT/HCPCS: 36415 ×6; 74019 ×2; 74176; 76775; 80053 ×4; 80074; 81001; 82150; 82270; 82550 ×3; 82553 ×3; 83630; 83690; 83735; 83880; 84484 ×3; 85025 ×3; 85379; 85610; 85730; 86403; 87040 ×2; 87045; 87046; 87070; 87502; 87651; 93005; 94760 ×7; 96361 ×4; 96372 ×3; 96374; 96375; 96376 ×3; 99284; G0378; J1650 ×3; J1885; J7030; J7120

== ENCOUNTER 2017-05-20 05:48 | Day surgery (SDC) | payer MEDICARE ==
--- NOTE | 2017-05-17 13:46 | RAD ---
EXAM DESCRIPTION: Chest,2 Views CLINICAL HISTORY: PRE OP COMPARISON: July 18, 2016 TECHNIQUE: PA/lateral FINDINGS: The lungs are well expanded and clear. No infiltrates or effusions or masses are noted. The heart is normal in size and shape with no evidence of vascular congestion. The parvin and mediastinum demonstrate normal contours. The bony spine and chest wall is normal for age in appearance. IMPRESSION: Normal chest, two views Electronically signed by: Rivera Arroyo MD 05/17/2017 1:45 PM IN FLIGHT TECHNICIAN
[2017-05-20] MEDS ORDERED: ceFAZolin SODIUM 1 GM VIAL ONE (06:49)
[2017-05-20] MEDS ORDERED: LACTATED RINGERS 1,000 ML ONE ×2 (06:49→11:02)
[2017-05-20] MEDS ORDERED: SODIUM CHL 0.9% 100ML MINI-BAG 100 ML IVPB ONE (06:49)
[2017-05-20] MEDS ORDERED: fentaNYL CITRATE INJ 50 MCG/ML AMP ONE (08:13)
[2017-05-20] MEDS ORDERED: MIDAZOLAM INJ 2 MG/2 ML VIAL ONE (08:13)
[2017-05-20] MEDS ORDERED: ROCURONIUM BROMIDE 10 MG/ML VIAL ONE (08:13)
[2017-05-20] MEDS: BUPIVACAINE 0.25% W/EPI 50 ML VIAL INJ ONE ×2 (09:06→09:10)
[2017-05-20] MEDS: HEPARIN SODIUM (PORCINE) 10,000 UNITS/ML VIAL ONE ×2 (09:06→09:11)
[2017-05-20] MEDS ORDERED: hydrALAZINE HCl 20 MG/ML VIAL ONE (09:29)
[2017-05-20] MEDS ORDERED: ePHEDrine SULF 50 MG/ML IV ONE (10:00)
[2017-05-20] MEDS ORDERED: KETOROLAC TROMETHAMINE INJ 30 MG/ML VIAL IV ONE (10:00)
[2017-05-20] MEDS ORDERED: diphenhydrAMINE HCL 50 MG/ML VIAL IV ONE (10:00)
[2017-05-20] MEDS ORDERED: METOCLOPRAMIDE HCL INJ 10 MG/2 ML VIAL IV ONE (10:00)
[2017-05-20] MEDS ORDERED: LIDOCAINE 1% 10 ML VIAL INJ ONE (10:00)
[2017-05-20] MEDS ORDERED: DEXAMETHASONE INJ 10 MG/ML VIAL IV ONE (10:00)
[2017-05-20] MEDS ORDERED: raNITIdine HCL INJ 25 MG/ML VIAL IV ONE (10:00)
[2017-05-20] MEDS ORDERED: SODIUM CHLORIDE 0.9% 50 ML VIAL INJ ONE (10:00)
[2017-05-20] MEDS ORDERED: PROPOFOL 200 MG/20 ML VIAL IV ONE (10:00)
[2017-05-20] MEDS ORDERED: SUGAMMADEX SODIUM 200 MG/2 ML VIAL IV ONE (10:06)
--- NOTE | 2017-05-20 10:52 | OP ---
DATE OF PROCEDURE: 05/20/17 PREOPERATIVE DIAGNOSIS: 1. Symptomatic cholelithiasis. POSTOPERATIVE DIAGNOSIS: 1. Symptomatic cholelithiasis. 2. Chronic cholecystitis. PROCEDURE: 1. Laparoscopic cholecystectomy with intraoperative cholangiography using fluoroscopy. SURGEON: Amado John MD. [employer] REPAIRER: None. ANESTHESIA: Local infiltration of 0.25% Marcaine with epinephrine and general endotracheal anesthesia. INDICATION: The patient is a 76-year-old female who was hospitalized 9 days ago with nausea, vomiting, right upper quadrant abdominal pain, back pain. She had elevated liver function tests. Ultrasound revealed small gallstones layered in the gallbladder and enlarged duct with no obvious stone. Her liver function testing improved with bowel rest. 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 The patient was brought to the Surgical Suite today for cholecystectomy after the risks, benefits and alternatives to the procedure were discussed and accepted in my office. FINDINGS: The gallbladder wall was mildly thickened. There were multiple adhesions from the omentum and the duodenum to the gallbladder which were taken down with blunt dissection. Intraoperative cholangiography revealed free flow into the duodenum after initial slow flow. No filling defects or strictures were identified. There were multiple stones found in the gallbladder upon opening the gallbladder. There were also multiple adhesions in the midline which extended superior to the umbilicus. DESCRIPTION OF PROCEDURE: After adequate general endotracheal anesthesia was obtained, the patient was prepped and draped in the usual sterile manner. Surgical time-out was taken. The infraumbilical area was infiltrated with local anesthesia. A curvilinear incision was fashioned and carried down through the subcutaneous tissue to the midline fascia using blunt dissection. Traction sutures were placed on either side of the midline. A small incision was made in the midline fascia and the peritoneum was opened bluntly. Rufus trocar was introduced under direct vision into the abdominal cavity and the scope was introduced by moving laterally first and then sweeping up to the right upper quadrant. When this was done, the gallbladder and other pathology was identified. The patient was then placed in reverse Trendelenburg position, turned to the left side. The upper abdominal ports were placed under direct vision. The gallbladder was grasped, retracted anteriorly and laterally. The adhesions to the gallbladder were then taken down using blunt dissection. When this was done, the neck of the gallbladder was retracted laterally. The triangle of Calot was then explored with the cystic duct and cystic artery identified and isolated. The cystic duct was hemoclipped once proximally. The cystic artery was hemoclipped twice proximally. The cholangiogram catheter was introduced through a separate stab wound in the right upper quadrant, introduced into the cystic duct and clipped in place. Cholangiograms were then taken using fluoroscopy which revealed free flow into the duodenum with no filling defects or strictures noted. When this was done, the cystic duct catheter was removed. The cystic duct was hemoclipped three times distally and divided between the hemoclips. The cystic artery was divided. The gallbladder was then dissected free from the gallbladder bed of the liver using electrocautery with no significant difficulty. The gallbladder was removed from the infraumbilical port site in the usual manner under direct vision. When this was done, the subhepatic space was inspected and there was bleeding from one place in the gallbladder bed of the liver. This was controlled by eventually turning the cautery up to 50. When this was done, the subhepatic and subphrenic space were irrigated copiously with saline. The effluent was noted to be clear. The sania hepatis was inspected and no bleeding or bile leak was identified. The gallbladder bed of the liver was again inspected and there was good hemostasis noted there. The upper abdominal ports were removed and adequate hemostasis was noted. At this point, the CO2, the laparoscope and the infraumbilical port were removed. The infraumbilical port site fascia was approximated with a single [id number] suture of 0 Vicryl. Subcutaneous tissue was irrigated with saline. Skin edges were approximated with 4-0 Vicryl subcuticular sutures, benzoin and Steri-Strips. Sterile dressings were applied. The patient was awakened and taken to the Recovery Room in good and stable condition. Estimated blood loss was 25 mL. All sponge, needle and instrument counts were correct. [id number]
[2017-05-20] MEDS ORDERED: traMADol HCL 50 MG TAB ONE (12:58)
[2017-05-20 14:21] VITALS: BP 107/61; TEMP 97.2; O2SAT 97
== END 2017-05-20 14:05 | disposition home or self-care (01) ==
LOC: AMB 05:48
PROVIDERS: ATTEND Surgery
DX: K80.10 Calculus of gallbladder with chronic cholecystitis without obstruction (principal); K82.8 Other specified diseases of gallbladder; I10 Essential (primary) hypertension; I25.10 Atherosclerotic heart disease of native coronary artery without angina pectoris; I25.2 Old myocardial infarction; Z88.8 Allergy status to other drugs, medicaments and biological substances; Z79.82 Long term (current) use of aspirin; Z79.899 Other long term (current) drug therapy
CPT/HCPCS: 00790; 47563; 71046; 76000; 80053; 81001; 85025; 88304; A4216; J0360; J0690; J1100; J1200; J1644; J1885; J2250; J2765; J2780; J3010; J3490; J7050; J7120

== ENCOUNTER → 2017-09-23 | Outpatient (CLI) | payer MEDICARE | LOC: GMAJ 10:52 | PROVIDERS: ATTEND Family Medicine | DX: I10 Essential (primary) hypertension (principal) ==